=== PATIENT | male | born 2000 | race Two or more races ===

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

== ENCOUNTER 2020-05-13 21:37 | Emergency (ER) | payer MEDICAID, OTHER ==
[~2020-05-13] VITALS: Ht 167.6 cm; Wt 63.5 kg
[~2020-05-13 21:37] MED LIST: ZOFRAN4 MG ORAL
--- NOTE | 2020-05-13 21:58 | NUR ---
ED Nurse Note: Patient came in to the ED with worsening SOB which started 05/03/2020. Patient was diagnosed with Bronchitis on 05/12/2020, prescribed Zpak and Tessalon perles via telehealth. Tested neg for covid on 05/03/2020, PCR test was done yesterday, waiting on result. O2 Sat low 92%.
[2020-05-13 22:39] VITALS: BP 131/78
[2020-05-13] MEDS ORDERED: dexAMETHasone 10mg/ml Inj IV ONE (23:00)
[2020-05-13] MEDS ORDERED: Azithromycin 250mg tab ORAL ONE (23:00)
[2020-05-13] MEDS ORDERED: cefTRIAXone 1 GM in NS 55 ML IVPB ONE (23:00)
[2020-05-13 23:29] LABS: BASOPHILS % (AUTO) 1.1 % (0.0-2.0); EOSINOPHILS % (AUTO) 8.3 % (0.0-3.0); HEMATOCRIT 46.5 % (42.0-52.0); HEMOGLOBIN 15.7 G/DL (14.2-18.0); LYMPHOCYTES % (AUTO) 15.6 % (20.0-45.0); MEAN CORPUSCULAR VOLUME 84 FL (80-99); MONOCYTES % (AUTO) 7.2 % (1.0-10.0); NEUTROPHILS % (AUTO) 67.8 % (45.0-75.0); PLATELET COUNT 200 K/UL (150-450); RED BLOOD COUNT 5.57 M/UL (4.70-6.10); RED CELL DISTRIBUTION WIDTH 14.3 % (11.6-14.8); WHITE BLOOD COUNT 10.6 K/UL (4.8-10.8)
[2020-05-13] MEDS ORDERED: Albuterol/Ipratropium 3ml neb HHN SCH (23:30)
[2020-05-13] MEDS ORDERED: Omnipaque 350 100ml vial INJ PRN (23:30)
--- NOTE | 2020-05-13 23:30 | Emergency Room Report ---
History of Present Illness General Chief Complaint: Dyspnea/Respdistress Source: Patient Present Illness HPI 20-year-old male with no prior medical history presents to emergency department with chief complaint of shortness of breath x10 days. He states that he underwent a rapid antigen Covid test on 05/05/2020 and was found to be negative. He took a Covid nasopharyngeal PCR today and is currently awaiting his results. His symptoms have been progressive for the past 10 days, combined with dry cough, sore throat myalgias, and fatigue. He denies hemoptysis, chest pain, recent travel/immobilization/surgery/trauma, nausea, vomiting, diarrhea, fever, chills, rash, headache, neck pain, or history of blood clot. The patient's symptoms were gradual onset, severity was moderate, duration since 10 days. Quality: Short of breath, wheezing Past medical history: Denies Past surgical history: Right pinky surgery Smoking: Denies Alcohol use: Occasional Drug use: Denies Review of systems: CONST: No fevers or chills, No night sweats PULMONARY: ++ cough, ++ shortness of breath CARDIAC: No chest pain, No palpitations GI: No vomiting, No diarrhea , No melena_or_BRBPR : No dysuria, No hematuria, No discharge NEURO: No new_focal_weakness_or_numbness, No confusion, No vision changes 14 point Review of Systems is otherwise negative except per HPI Physical Exam: GENERAL: Awake_alert_ nontoxic, no acute distress Spo2 90% on RA -normal EYES: Extraocular muscles are intact. Conjunctivae clear. Lids without swelling ENT: External nose and ear normal_in_appearance. Oropharynx clear. Head_atraumatic, Moist_oral_mucosa NECK: No JVD. No meningismus. No thyromegaly. Supple. Trachea midline RESP: Increased work of breathing. Inspiratory and equatorial wheezing. Coarse breath on bilaterally. Speaks in short sentences. Symmetric rise. No stridor. CARDIAC: Regular rate and regular rhytm. No_significant pedal edema. ABDOMEN: Soft. Nondistended. Nontender_No_rebound_or_guarding. MSK: Normal muscle tone, without rigidity. Extremities without asymmetric de formity or swelling. SKIN: Warm and dry. No visible cyanosis or pallor NEUROLOGIC: Alert, oriented x3. Motor_and_sensation_grossly_intact. No truncal ataxia. Gait_normal Psych: Normal mood and affect, normal judgment and insight - COORDINATION OF CARE Case was discussed with: Patient Any labs and imaging that were ordered were interpreted as part of the medical decision making: Medical Decision Making/Plan: Differential includes pneumonia, bronchitis, CHF, pulmonary edema, pulmonary embolism, pleural effusion among others. Symptoms are not likely to be pulmonary embolism, patient no significant PE risk factors, and has more likely alternate cause of symptoms. Labs show no abnormalities on CBC or CMP. Troponin negative x1. EKG is unremarkable for ischemia or arrhythmia. Presentation not consistent with ischemia / ACS. CTA demonstrates atypical pneumonia; high clinical suspicion for COVID 19. Otherwise, no PE. Covid rapid antigen test was negative, however patient was instructed with Covid isolation precautions due to high clinical suspicion. Patient was given Ceftriaxone / Azithromycin, decadron, magnesium, and breathing treatment with resolution of symptoms. No ambulatory hypoxia noted. Patient was offered admission, however, he declines at this time and prefers to be discharged home with albuterol inhaler and cough medicine so he can follow-up with his primary care doctor as an outpatient. He is currently already on zpac from [facility] which I have instructed him to continue at home. The patient was nontoxic with benign vital signs. He did not meet admission criteria and was stable for outpatient therapy, under the current guideline. The patient was instructed to be home quarantined, and appropriate precautions were given. The patient was educated and instructed to notify a healthcare professional if they develop difficulty breathing, chest pain, palpitations, fever or other concerning symptoms. These instructions were given to the patient in both verbal and written forms. The patient was given an opportunity to ask questions. The patient was discharged with written instructions for COVID-19, including strict ED return precautions. Allergies: Coded Allergies: No Known Allergies (Unverified , 08/22/16) COVID-19 Screening Contact w/high risk pt: No Experienced COVID-19 symptoms?: No COVID-19 Testing performed [employer]: No COVID-19 Screening: Negative COVID-19 COVID-19 Testing Source: [place] Physical Exam Vital Signs Date Time Temp Pulse Resp B/P (MAP) Pulse Ox O2 Delivery O2 Flow Rate FiO2 05/13/20 21:45 99.5 90 20 131/78 (95) 92 Room Air Sp02 EP Interpretation: reviewed, normal Medical Decision Making Diagnostic Impression: Primary Impression: Cough Additional Impression: Suspected 2019-nCoV infection EKG Diagnostic Results Troponin ordered: Yes When was troponin ordered?: May 13, 2020 BHUPINDER Tejeda 12-lead EKG (interpreted by me) Time: 2251 Indication: Rhythm analysis Tracing visualized and Interpreted by me. Rhythm: Normal sinus rhythm Rate: 77 bpm QTc: 387 Morphology: No_significant_ST_elevations_or_depressions, No STEMI Impression: Normal_sinus_rhythm_without_significant_abnormality; right axis Rhythm Strip Diag. Results Rhythm Strip Time: 23:30 EP Interpretation: yes Rate: 95 Rhythm: NSR, no PVC's, no ectopy Chest X-Ray Diagnostic Results Chest X-Ray Diagnostic Results : BHUPINDER Tejeda Chest X-Ray: Views: [ 1 ] view(s) Indication: SOB Findings: Normal heart size. Mediastinum normal. No infiltrate. Impression: NAD The X-ray(s) were independently viewed and interpreted contemporaneously Electronically signed by Julia gil, CT/MRI/US Diagnostic Results CT/MRI/US Diagnostic Results : Impression CT Angiography Chest With Intravenous Contrast CLINICAL HISTORY: SOB FINDINGS: Pulmonary arteries: No pulmonary embolism. Aorta: No acute findings. No thoracic aortic aneurysm. Lungs: Scattered mild, ill-defined groundglass few right lung opacities could represent multifocal mild inflammation or infection. Pleural space: Unremarkable. No significant effusion. No pneumothorax. Heart: Unremarkable. No cardiomegaly. No significant pericardial effusion. No evidence of RV dysfunction. Bones/joints: No acute fracture. No dislocation. Soft tissues: Unremarkable. Lymph nodes: Unremarkable. No enlarged lymph nodes. IMPRESSION: 1. No pulmonary embolism. 2. Subtle pulmonary findings which could represent subtle pneumonia or other mild infectious or inflammatory process. 3. Recommend follow-up unenhanced CT chest in 3 months to document resolution of pulmonary findings. 4. Otherwise unremarkable study. Radiologist: Daniel Patrick MD Reevaluation Time: 01:04 Last Vital Signs Date Time Temp Pulse Resp B/P (MAP) Pulse Ox O2 Delivery O2 Flow Rate FiO2 05/13/20 22:39 90 20 Room Air 05/13/20 22:39 99.5 131/78 92 Status: unchanged Disposition: ADMITTED INPATIENT Admit Decision Time: 01:04 Condition: Stable Scripts Guaifenesin/Dextromethorphan* (Guaifenesin Dm Syrup*) 5 Ml Syrup 5 ML ORAL Q8H PRN for FOR COUGH, #118 ML 0 Refills Prov: Billy Barlowjodi Elizabeth. 05/14/20 Prednisone* (PREDNISONE*) 20 Mg Tablet 40 MG ORAL DAILY, #10 TAB Prov: CainJulia D.Criss. 05/14/20 Albuterol Sulfate* (Albuterol Sulfate Hfa*) 8.5 Gm Hfa.aer.ad 2 PUFF INH Q3H, #1 INH Prov: Julia Barlow Clara. 05/14/20 Referrals: [facility]ERR[facility] (PCP) Patient Instructions: Community-Acquired Pneumonia, Adult, [id number], How to Use an Inhaler, [id number] Additional Instructions: Your evaluation suggests that you are suffering from a viral infection producing a viral syndrome. You can sign up for testing with ROSEY BACA at the following website as discussed [email or web address]/ Symptoms of a viral syndrome may include fever, sore throat, headache, body aches and pains, generalized weakness and fatigue, and runny nose. You do not show signs or symptoms suggestive of a serious or life threatening illness. This illness may be caused by a number of different viruses, including Influenza A or B or COVID-19. These viruses are highly contagious and spread rapidly from person to person via coughing and sneezing of the virus or by contaminated s urface contact with nasal or other respiratory secretions. These viruses cause a similar combination of signs and symptoms which are typically much more severe than the common cold. Typically they begin with the rapid onset of fever, often high (over 102), body aches, fatigue, headache, and usually upper respiratory tract infections symptoms such as cough, runny nose, and sore throat. The illness typically lasts 7-10 days, with the fever and feelings of weakness and body aches usually lasting 3-5 days. Your own immune system fights off these infections. Only rarely do secondary bacterial infections occur (such as bacterial pneumonia) and can be serious. At this time your symptoms do not appear serious, however, there are limitations to online visits and if you are not improving you may need to be evaluated by a doctor in person and that doctor may need to do additional tests. INSTRUCTIONS: Illnesses such as yours typically resolve on their own with time however you must remember to stay hydrated and drink 2-3 times your normal fluid intake, as fever and your increased metabolism in fighting the infection uses more water. Fever control is important to help you feel better and to help prevent dehydration. Acetaminophen is an excellent choice for fever control and other symptoms (as long as you are not allergic to the medication). Rest is also important in helping your body fight this infection. Over the counter cough and decongestant medications are safe (as long as you dont have uncontrolled high blood pressure) and may help the cough and congestion slightly. As these viruses are highly contagious, good hand washing habits, and covering your cough and sneeze help prevent spread. Fever can be a sign of a serious infection and it is imperative that you go directly to an Emergency Department for serious symptoms such as weakness, confusion, significant shortness of breath, abdominal pain, or severe headache. Close follow up with a physician is important if you are not improving over the next few days or you experience worsening of your symptoms. Although it is impossible to know at this point if you have COVID-19 (the [place] virus), please quarantine yourself and anyone else that is residing with you for the longer of the following time periods: 14 days OR 3 days after the last of your symptoms has resolved CONTACT THE DOCTOR RIGHT AWAY if you develop worsening symptoms such as shortness of breath, chest pain, neck stiffness, confusion or any other new, worsening, or concerning symptoms. For emergencies contact 911 immediately. Julia Barlow D.O. May 13, 2020 23:30
[2020-05-13 23:39] LABS: ANION GAP 4 mmol/L (5-15); BLOOD UREA NITROGEN 23 mg/dL (7-18); CALCIUM 9.8 MG/DL (8.5-10.1); CARBON DIOXIDE 32 MMOL/L (21-32); CHLORIDE 104 MMOL/L (98-107); CREATININE 0.9 MG/DL (0.55-1.30); SODIUM 140 MMOL/L (136-145)
[2020-05-13 23:50] LABS: ALANINE AMINOTRANSFERASE 17 U/L (12-78); ALBUMIN 4.2 G/DL (3.4-5.0); ALBUMIN/GLOBULIN RATIO 1.1 (1.0-2.7); ALKALINE PHOSPHATASE 81 U/L (46-116); ASPARTATE AMINO TRANSFERASE 11 U/L (15-37); BILIRUBIN,TOTAL < 0.1 MG/DL (0.2-1.0)
--- NOTE | 2020-05-14 00:50 | Diagnostic Imaging Report ---
EXAM: CT Angiography Chest With Intravenous Contrast CLINICAL HISTORY: SOB TECHNIQUE: Axial computed tomographic angiography images of the chest with intravenous contrast. CTDI is 51.9 mGy and DLP is 214.6 mGy-cm. One or more of the following dose reduction techniques were used: automated exposure control, adjustment of the mA and/or kV according to patient size, use of iterative reconstruction technique. MIP reconstructed images were created and reviewed. Coronal and sagittal reformatted images were created and reviewed. COMPARISON: No relevant prior studies available. FINDINGS: Pulmonary arteries: No pulmonary embolism. Aorta: No acute findings. No thoracic aortic aneurysm. Lungs: Scattered mild, ill-defined groundglass few right lung opacities could represent multifocal mild inflammation or infection. Pleural space: Unremarkable. No significant effusion. No pneumothorax. Heart: Unremarkable. No cardiomegaly. No significant pericardial effusion. No evidence of RV dysfunction. Bones/joints: No acute fracture. No dislocation. Soft tissues: Unremarkable. Lymph nodes: Unremarkable. No enlarged lymph nodes. IMPRESSION: 1. No pulmonary embolism. 2. Subtle pulmonary findings which could represent bowel pneumonia or other mild infectious or inflammatory process. 3. Recommend follow-up unenhanced CT chest in 3 months to document resolution of pulmonary findings. 4. Otherwise unremarkable study.
[2020-05-14 01:02] VITALS: BP 124/73
--- NOTE | 2020-05-14 01:03 | NUR ---
Patient reports breathing improved. Denies SOB, chest pain. O2 sat 94 % room air.
[2020-05-14] MEDS ORDERED: PREDNISONE20 MG ORAL (01:06)
[2020-05-14] MEDS ORDERED: ALBUTEROL SULF8.5 G1 INH (01:06)
[2020-05-14] MEDS ORDERED: GUAIFENESIN DM118 M1 ORAL (01:06)
[2020-05-14] MEDS: Albuterol/Ipratropium 3ml neb HHN SCH (01:25)
--- NOTE | 2020-05-14 01:50 | NUR ---
ER DISCHARGE NOTE: Patient is cleared to be discharged per ERMD, pt is aox4, on room air, with stable vital signs. pt was given dc and prescription instructions, pt was able to verbalize understanding, pt id band and iv site removed without complications. pt is able to ambulate with steady gait. pt took all belongings.
[2020-05-14 02:07] VITALS: BP 123/68
--- NOTE | 2020-05-14 13:04 | Diagnostic Imaging Report ---
Procedure: XRAY Chest 1v Reason for study: Shortness of breath. Comparison films: None. FINDINGS: A single one view chest is obtained. Vascularity is normal. The lung sagastume are clear bilaterally. Cardiac and mediastinal silhouette are within normal limits. CP angles are sharp. The bony thorax appear unremarkable. IMPRESSION: NO ACUTE CARDIOPULMONARY DISEASE.
--- NOTE | 2020-05-14 19:15 | Cardiology Report ---
APPROVED REPORT EKG Measurement Heart [id number] UT [id number] <Conclusion> Normal sinus rhythm Rightward axis Borderline ECG
== END 2020-05-14 01:50 | disposition other institution (70) ==
LOC: EMR 22:08
DX: R05 Cough (principal); R06.02 Shortness of breath; J02.9 Acute pharyngitis, unspecified; M79.10 Myalgia, unspecified site; R53.83 Other fatigue
CPT/HCPCS: 36415; 71045; 71275; 80053; 83880; 84484; 85025; 93005; 94640; 96365; 96375; J0696; Q0144; Q9967; Z7502; 99285; J7620